=== PATIENT | male | born 1965 | race Caucasian/White ===

== ENCOUNTER → 2023-11-04 10:04 | Outpatient (REF) | payer OTHER, SELFPAY | LOC: HWRCS 10:04 | PROVIDERS: ATTENDING PHYSICIAN Internal Medicine Cardiovascular Disease; FAMILY PHYSICIAN Family Medicine | DX: R07.89 Other chest pain (principal) | CPT/HCPCS: 93306 ==

== ENCOUNTER → 2023-12-04 08:01 | Outpatient (REF) | payer OTHER, SELFPAY | LOC: RCS 08:01 | PROVIDERS: ATTENDING PHYSICIAN Internal Medicine Cardiovascular Disease; FAMILY PHYSICIAN Family Medicine | DX: R07.89 Other chest pain (principal) | CPT/HCPCS: 93017; 93350 ==

== ENCOUNTER → 2024-06-14 16:17 | Outpatient (REF) | payer OTHER, SELFPAY | LOC: PAVMRI 16:17 | PROVIDERS: ATTENDING PHYSICIAN Physical Medicine & Rehabilitation | DX: M75.41 Impingement syndrome of right shoulder (principal) | CPT/HCPCS: 73221 ==